=== PATIENT | female | born 1940 | race Asian ===

== ENCOUNTER 2017-07-23 02:17 | Emergency (ER) | payer OTHER ==
[~2017-07-23] VITALS: Ht 154.9 cm; Wt 44.5 kg
[2017-07-23 02:25] VITALS: BP_SYST 128
[2017-07-23] MEDS ORDERED: KETOROLAC TROMETHAMINE 30 MG VIAL IVP ONE (02:45)
[2017-07-23] MEDS ORDERED: NS 500 ML IV ONE (02:45)
[2017-07-23 03:16] LABS: MEAN CORPUSCULAR HGB CONC 34 % (32-36); MEAN CORPUSCULAR VOLUME 90 fL (79.0-98.0)
[2017-07-23 03:18] LABS: HEMATOCRIT 35.3 % (36-48); HEMOGLOBIN 11.9 g/dL (12.0-16.0); MEAN CORPUSCULAR HEMOGLOBIN 30 pg (27-31); PLATELET COUNT (AUTO) 241 K/uL (130-430); RED BLOOD CELL COUNT(AUTO) 3.92 MIL/uL (4.2-6.2); RED CELL DISTRIBUTION WIDTH 11.4 % (9.0-15.0); WHITE BLOOD COUNT (AUTO) 7.6 K/uL (4.8-10.8)
[2017-07-23 03:27] LABS: ANION GAP 6 (5-15); CALCIUM 9.1 mg/dL (8.4-11.0); CHLORIDE 105 mmol/L (98-107); CREATININE 0.76 mg/dL (0.55-1.30); GLUCOSE 121 mg/dL (70-99); POTASSIUM 3.6 mmol/L (3.5-5.1); SODIUM SERUM 138 mmol/L (136-145); UREA NITROGEN, BLOOD 14 mg/dL (8-21)
[2017-07-23 03:41] LABS: ATYPICAL LYMPHOCYTES % 0 % (0-0); BAND % (MANUAL) 3 % (0-6); BASOPHILS % (MANUAL) 1 % (0-2); EOSINOPHILS % (MANUAL) 0 % (0-7); LYMPHOCYTES % (MANUAL) 7 % (20-46); MONOCYTES % (MANUAL) 2 % (0-11)
[2017-07-23 03:42] LABS: ALANINE AMINOTRANSFERASE 41 U/L (12-78); ALBUMIN 3.5 g/dL (3.4-4.8); ASPARTATE AMINOTRANSFERASE 33 U/L (10-37); THYROID STIMULATING HORMONE 0.31 uIu/mL (0.34-4.82); TOTAL BILIRUBIN 0.6 mg/dL (0.0-1.0)
[2017-07-23 04:46] VITALS: BP_SYST 128
== END 2017-07-23 04:46 | disposition home or self-care (01) ==
LOC: SED 02:17
DX: M48.02 Spinal stenosis, cervical region (principal); M51.87 Other intervertebral disc disorders, lumbosacral region; Z88.2 Allergy status to sulfonamides
CPT/HCPCS: 36415; 72125; 72131; 80053; 84443; 85007; 85027; 96361; 96374; 99285; J1885; J7030

== ENCOUNTER 2021-04-13 14:39 | Emergency (ER) | payer OTHER ==
[~2021-04-13] VITALS: Ht 157.5 cm; Wt 44.5 kg
--- NOTE | 2021-04-13 14:50 | NUR ---
Patient to ER bed 7 to gown for evaluation. Side rails up.
--- NOTE | 2021-04-13 14:50 | NUR ---
Pt bib daughter to ER via wheelchair s/p mechanical slip and fall while gardening this morning. Pain 10/10, unable to bear weight. Denies any other injury or LOC. V/S stable, no acute distress noted.
[2021-04-13 14:52] VITALS: BP_SYST 148
--- NOTE | 2021-04-13 14:55 | NUR ---
MARILYN Lorenz at bedside examining patient.
[2021-04-13] MEDS ORDERED: MORPHINE 4 MG INJ. 4 MG/ML VIAL IM ONE (15:00)
--- NOTE | 2021-04-13 15:00 | NUR ---
Radiology at bedside for hip x-ray
--- NOTE | 2021-04-13 15:50 | NUR ---
Patient given written and verbal discharge instructions and verbalizes understanding. ER MD discussed with patient the results and treatment provided. Patient in stable condition. ID arm band removed. No prescriptions given. Patient educated on pain management and to follow up with PMD. Pain Scale 0. Opportunity for questions provided and answered. Medication side effect fact sheet provided.
[2021-04-13 16:20] VITALS: BP_SYST 148
== END 2021-04-13 15:50 | disposition home or self-care (01) ==
LOC: SED 14:39
DX: S70.11XA Contusion of right thigh, initial encounter (principal); I10 Essential (primary) hypertension; F03.90 Unspecified dementia, unspecified severity, without behavioral disturbance, psychotic disturbance, mood disturbance, and anxiety; Z88.2 Allergy status to sulfonamides; W01.0XXA Fall on same level from slipping, tripping and stumbling without subsequent striking against object, initial encounter; Y93.89 Activity, other specified; Y92.89 Other specified places as the place of occurrence of the external cause; Y99.8 Other external cause status
CPT/HCPCS: 73502; 73552; 73560; 96372; 99284; J2270

== ENCOUNTER 2022-10-17 15:40 | Emergency (ER) | payer OTHER ==
[~2022-10-17] VITALS: Ht 147.3 cm; Wt 63.5 kg
[2022-10-17 15:46] VITALS: BP_SYST 148
[2022-10-17] MEDS ORDERED: ROSU40TA PO (15:52)
[2022-10-17] MEDS ORDERED: TAMS-11 PO (15:52)
[2022-10-17] MEDS ORDERED: FINA5TAB3 PO (15:52)
[2022-10-17] MEDS ORDERED: METO25TA3 PO (15:52)
[2022-10-17] MEDS ORDERED: IRBE75TA29 PO (15:52)
[2022-10-17] MEDS ORDERED: CLOP75TA32 PO (15:52)
[2022-10-17] MEDS ORDERED: VITD2000 PO (15:52)
[2022-10-17] MEDS ORDERED: ASPI-1457 PO (15:52)
[2022-10-17 16:21] LABS: BASOPHILS # (AUTO) 0.1 K/uL (0.0-0.2); BASOPHILS % (AUTO) 1.3 % (0.0-2.0); EOSINOPHILS # (AUTO) 0.2 K/uL (0.0-0.4); EOSINOPHILS % (AUTO) 3.5 % (0.0-4.0); HEMATOCRIT 33.7 % (36-48); HEMOGLOBIN 11.1 g/dL (12.0-16.0); LYMPHOCYTES # (AUTO) 0.8 K/uL (1.0-5.5); LYMPHOCYTES % (AUTO) 12.3 % (20.5-51.5); MEAN CORPUSCULAR HEMOGLOBIN 29 pg (27-31); MEAN CORPUSCULAR HGB CONC 33 % (32-36); MEAN CORPUSCULAR VOLUME 88 fL (79.0-98.0); MONOCYTES # (AUTO) 0.6 K/uL (0.0-1.0); MONOCYTES % (AUTO) 9.2 % (1.7-9.3); NEUTROPHILS # (AUTO) 4.7 K/uL (1.8-7.7); NEUTROPHILS % (AUTO) 73.7 % (40.0-70.0); PLATELET COUNT (AUTO) 452 K/uL (130-430); RED BLOOD CELL COUNT(AUTO) 3.83 MIL/uL (4.2-6.2); RED CELL DISTRIBUTION WIDTH 12.8 % (9.0-15.0); WHITE BLOOD COUNT (AUTO) 6.3 K/uL (4.8-10.8)
[2022-10-17 17:03] LABS: ANION GAP 9 (5-15); CHLORIDE 97 mmol/L (98-107); CREATININE 1.59 mg/dL (0.55-1.30); GLUCOSE 112 mg/dL (70-99); UREA NITROGEN, BLOOD 24 mg/dL (8-21)
[2022-10-17 17:08] VITALS: BP_SYST 136
[2022-10-17 17:09] LABS: ALANINE AMINOTRANSFERASE 24 U/L (12-78); ALBUMIN 3.9 g/dL (3.4-4.8); ASPARTATE AMINOTRANSFERASE 19 U/L (10-37); TOTAL BILIRUBIN 0.4 mg/dL (0.0-1.0)
== END 2022-10-17 18:25 | disposition home or self-care (01) ==
LOC: SED 15:40
DX: R60.9 Edema, unspecified (principal); I10 Essential (primary) hypertension; Z88.2 Allergy status to sulfonamides; Z79.899 Other long term (current) drug therapy
CPT/HCPCS: 36415; 71045; 80053; 83880; 84484; 85025; 93005; 93971; 99285